=== PATIENT | male | born 1995 | race Hispanic/Latino ===

== ENCOUNTER 2021-05-06 17:24 | Emergency (ER) | payer SELFPAY ==
[2021-05-06 18:37] LABS: Absolute Lymphocytes (CBC) 1.4 K/uL (0.7-4.9); Lymphocytes % 18.9 % (15.3-44.8); MPV 8.9 fL (7.6-11.3)
[2021-05-06 18:41] LABS: Urine Blood Negative (Negative); Urine Glucose Negative (Negative); Urine Protein Trace (Negative); Urine Specific Gravity 1.025 (1.005-1.030)
[2021-05-06 18:53] LABS: Potassium 4.3 mmol/L (3.5-5.1)
[2021-05-06] MEDS ORDERED: NA CHLORIDE 0.9% 1,000 ML ONE (20:10)
[2021-05-06 20:34] LABS: SARS-COV-2 RT PCR NEGATIVE (NEGATIVE)
--- NOTE | 2021-05-06 20:48 | ER ---
Nurse's Notes [facility] Name: Vicente Fuchs Age: 26 yrs Sex: Male : 1995 Arrival Date: 05/06/2021 Time: 17:26 Bed 20 Private MD: Diagnosis: Volume depletion, unspecified Presentation: 05/06 17:44 Chief complaint: Patient states: "I just feel very weak and tired. I think I'm ab2 dehydrated. My work sent me here to be checked out." Pt c/o nausea. Denies v/d. Denies chest pain, SOB and cough. Coronavirus screen: Vaccine status: Patient reports receiving the 2nd dose of the covid vaccine. Client denies travel out of the [place] in the last 14 days. At this time, the client does not indicate any symptoms associated with coronavirus-19. Ebola Screen: Patient negative for fever greater than or equal to 101.5 degrees Fahrenheit, and additional compatible Ebola Virus Disease symptoms Patient denies exposure to infectious person. Patient denies travel to an Ebola-affected area in the 21 days before illness onset. No symptoms or risks identified at this time. Initial Sepsis Screen: Does the patient meet any 2 criteria? No. Patient's initial sepsis screen is negative. Does the patient have a suspected source of infection? No. Patient's initial sepsis screen is negative. Risk Assessment: Do you want to hurt yourself or someone else? Patient reports no desire to harm self or others. Onset of symptoms is unknown. 17:44 Method Of Arrival: Ambulatory ab2 17:48 Acuity: NINFA 4 ab2 Triage Assessment: 17:47 General: Appears in no apparent distress. comfortable, Behavior is calm, cooperative, ab2 appropriate for age. Pain: Denies pain. Cardiovascular: Denies chest pain, shortness of breath. Respiratory: Denies shortness of breath. GI: Reports nausea, Patient currently denies diarrhea, vomiting. Historical: - Allergies: 17:47 Levofloxacin; ab2 - PMHx: 17:47 None; ab2 - PSHx: 17:47 None; ab2 - Immunization history:: Adult Immunizations up to date. - Social history:: Smoking status: Reported history of juuling and/or vaping. Screenin:04 Abuse screen: Denies threats or abuse. Denies injuries from another. Nutritional sm5 screening: No deficits noted. Tuberculosis screening: No symptoms or risk factors identified. Fall Risk None identified. Assessment: 21:04 General: Appears in no apparent distress. Behavior is cooperative. Neuro: No deficits sm5 noted. Level of Consciousness is awake, alert, obeys commands, Oriented to person, place, time, situation. Cardiovascular: No deficits noted. Capillary refill < 3 seconds Patient's skin is warm and dry. Respiratory: No deficits noted. Airway is patent Trachea midline Respiratory effort is even, unlabored. Vital Signs: 17:44 BP 130 / 95; Pulse 87; Resp 17; Temp 98.7(TE); Pulse Ox 100% on R/A; Weight 83.01 kg; ab2 Height 5 ft. 7 in. (170.18 cm); Pain 0/10; 18:41 BP 118 / 79 LA Standing (man/reg); mb7 18:41 BP 120 / 76 LA Sitting (man/reg); mb7 21:05 BP 104 / 88; Pulse 75; Resp 16; Pulse Ox 99% on R/A; sm5 17:44 Body Mass Index 28.66 (83.01 kg, 170.18 cm) ab2 ED Course: 17:26 Patient arrived in ED. rg4 17:47 Triage completed. ab2 17:48 Arm band placed on right wrist. ab2 17:50 Tj Suarez, KERVIN is Primary Nurse. jd3 17:52 Noelle Valdivia FNP-C is [facility]. kb 17:52 Mehul Carmen MD is Attending Physician. kb 21:04 IV discontinued, intact, bleeding controlled, No redness/swelling at site. Pressure sm5 dressing applied. 21:06 Patient has correct armband on for positive identification. Bed in low position. Call sm5 light in reach. Side rails up X2. 21:06 No provider procedures requiring assistance completed. sm5 Administered Medications: 20:10 Drug: NS 0.9% 1000 ml Route: IV; Rate: 1000 ml; Site: right antecubital; sm5 21:06 Follow up: IV Status: Completed infusion; IV Intake: 1000ml sm5 Intake: 21:06 IV: 1000ml; Total: 1000ml. sm5 Outcome: 20:48 Discharge ordered by . kb 21:06 Discharged to home ambulatory, with family. 5 21:06 Condition: stable 21:06 Discharge instructions given to patient, Instructed on discharge instructions, follow up and referral plans. Demonstrated understanding of instructions, follow-up care. 21:06 Patient left the ED. 5 Signatures: Noelle Valdivia, BARKER PEELER-C BARKER PEELER-CkLanette Farias rg4 Tj Suarez RN RN jd3 Leana Nieto 7 Jaz Padilla RN RN sm5 Laz Ward ab2 Corrections: (The following items were deleted from the chart) 17:44 Chief complaint: Patient states: "I just feel very weak and tired. I think I'm ab2 dehydrated. My work sent me here to be checked out." ab2 17:44 Acuity: NINFA 3 ab2 ab2
--- NOTE | 2021-05-06 20:48 | EDPHYS ---
Physician Documentation [facility] Name: Vicente Fuchs Age: 26 yrs Sex: Male : 1995 Arrival Date: 05/06/2021 Time: 17:26 Bed 20 Private MD: ED Physician Mehul Carmen HPI: 05/06 18:23 This 26 yrs old Male presents to ER via Ambulatory with complaints of kb Weakness, Body Aches. 18:23 The patient presents with generalized weakness. Onset: The symptoms/episode kb began/occurred today. Context: occurred at home, occurred while the patient was getting up from bed, just prior to the episode the patient experienced no apparent symptoms. Modifying factors: The symptoms are alleviated by nothing, the symptoms are aggravated by nothing. Associated signs and symptoms: Pertinent positives: nausea, bodyaches. Severity of symptoms: At their worst the symptoms were moderate in the emergency department the symptoms are unchanged. Patient's baseline: Neuro: alert and fully oriented, Motor: no deficits, Ambulation: walks without assistance, Speech: normal. The patient has not experienced similar symptoms in the past. The patient has not recently seen a physician. Pt reports he woke up at 1400 and had some weakness, bodyaches and nausea. States "I feel like I'm dehydrated. I don't drink a lot of water.". Historical: - Allergies: 17:47 Levofloxacin; ab2 - PMHx: 17:47 None; ab2 - PSHx: 17:47 None; ab2 - Immunization history:: Adult Immunizations up to date. - Social history:: Smoking status: Reported history of juuling and/or vaping. ROS: 18:21 Respiratory: Negative for shortness of breath, cough, wheezing, and pleuritic chest kb pain. 18:21 Constitutional: Positive for body aches, fatigue. 18:21 Abdomen/GI: Positive for nausea, Negative for abdominal pain, vomiting, diarrhea. 18:21 Neuro: Positive for weakness. 18:21 All other systems are negative. Exam: 18:21 Constitutional: This is a well developed, well nourished patient who is awake, alert, kb and in no acute distress. Head/Face: Normocephalic, atraumatic. ENT: Moist Mucous membranes Cardiovascular: Regular rate and rhythm with a normal S1 and S2. No gallops, murmurs, or rubs. No pulse deficits. Respiratory: Respirations even and unlabored. No increased work of breathing. Talking in full sentences Abdomen/GI: Soft, non-tender. No distention Skin: Warm, dry with normal turgor. Normal color. MS/ Extremity: Pulses equal, no cyanosis. Neurovascular intact. Full, normal range of motion. Neuro: Awake and alert, GCS 15, oriented to person, place, time, and situation. Moves all extremities. Normal gait. Psych: Awake, alert, with orientation to person, place and time. Behavior, mood, and affect are within normal limits. Vital Signs: 17:44 BP 130 / 95; Pulse 87; Resp 17; Temp 98.7(TE); Pulse Ox 100% on R/A; Weight 83.01 kg; ab2 Height 5 ft. 7 in. (170.18 cm); Pain 0/10; 18:41 BP 118 / 79 LA Standing (man/reg); mb7 18:41 BP 120 / 76 LA Sitting (man/reg); mb7 21:05 BP 104 / 88; Pulse 75; Resp 16; Pulse Ox 99% on R/A; sm5 17:44 Body Mass Index 28.66 (83.01 kg, 170.18 cm) ab2 MDM: 17:53 Patient medically screened. kb 18:19 Data reviewed: vital signs, nurses notes. Data interpreted: Pulse oximetry: on room air kb is 100 %. Interpretation: normal. 20:46 Counseling: I had a detailed discussion with the patient and/or guardian regarding: the kb historical points, exam findings, and any diagnostic results supporting the discharge/admit diagnosis, lab results, the need for outpatient follow up, a family practitioner, to return to the emergency department if symptoms worsen or persist or if there are any questions or concerns that arise at home. 05/06 18:11 Order name: CBC with Diff kb 05/06 18:11 Order name: Basic Metabolic Panel; Complete Time: 18:54 kb 05/06 18:11 Order name: IV Start; Complete Time: 18:25 kb 05/06 18:11 Order name: COVID-19/FLU A+B (Document "Date of Onset" if Symptomatic); Complete Time: kb 20:40 05/06 18:41 Order name: Urine Dipstick-Ancillary; Complete Time: 18:45 EDMS 05/06 18:11 Order name: Urine Dipstick-Ancillary (obtain specimen); Complete Time: 18:42 kb 05/06 18:11 Order name: Orthostatics; Complete Time: 18:42 kb Administered Medications: 20:10 Drug: NS 0.9% 1000 ml Route: IV; Rate: 1000 ml; Site: right antecubital; sm5 21:06 Follow up: IV Status: Completed infusion; IV Intake: 1000ml 5 Disposition Summary: 05/06/21 20:48 Discharge Ordered Location: Home kb Condition: Stable kb Diagnosis - Volume depletion, unspecified kb Followup: kb - With: Emergency Department - When: As needed - Reason: Worsening of condition Followup: kb - With: Private Physician - When: 2 - 3 days - Reason: Recheck today's complaints, Continuance of care, Re-evaluation by your physician Discharge Instructions: - Discharge Summary Sheet kb - Dehydration, Adult, [id number] kb Forms: - Medication Reconciliation Form kb - Thank You Letter kb - Antibiotic Education kb - Work release form kb - Prescription Opioid Use kb Addendum: 05/10/2021 07:11 Co-signature as Attending Physician, Mehul Carmen MD I agree with the assessment and c alm plan of care. Signatures: Dispatcher [employer] Noelle Hernández, SCREEN EXAMINER-C SCREEN EXAMINER-Mehul Zendejas MD MD cha Mazur, Sarah, RN RN sm5 Laz Ward
[2021-05-06 21:38] VITALS: TEMP 98.7
[2021-05-06 21:40] VITALS: BP 104/88; O2SAT 99
== END 2021-05-06 21:06 | disposition home or self-care (01) ==
LOC: ER 17:24
DX: E86.9 Volume depletion, unspecified (principal); Z20.822 Contact with and (suspected) exposure to COVID-19; Z88.1 Allergy status to other antibiotic agents
CPT/HCPCS: 0240U; 36415; 80048; 81003; 85025; 96360; 99283; J7030

== ENCOUNTER 2021-06-20 08:58 | Emergency (ER) | payer SELFPAY ==
--- NOTE | 2021-06-20 10:51 | RAD REPORT ---
EXAM DESCRIPTION: CT - Head Brain Wo Cont - 06/20/2021 10:22 am CLINICAL HISTORY: Hydrocephalus, shunted, follow up COMPARISON: No comparisons TECHNIQUE: Axial 5 mm thick images of the head were obtained without IV contrast. All CT scans are performed using dose optimization technique as appropriate and may include automated exposure control or mA/KV adjustment according to patient size. FINDINGS: No intracranial hemorrhage is present. Ventricles are fully decompressed. Physiologic calc ifications are present. Shunt tube is present with the tip in the midline. No acute infarction change s are present. No abnormal extra-axial fluid collections. Patient has significant underlying developm ental abnormalities evident. Brain parenchymal detail is somewhat limited. Isodense mass lesion asses sment cannot be accurately made on this study. Mastoid air cells and visualized portions of the paranasal sinuses are clear. No acute bony findings. Foramen magnum is enlarged. IMPRESSION: Ventricles are fully decompressed. Shunt tube is present in the midline. No intracranial hemorrhage is present. No cerebral edema suspected. Patient has gross developmental abnormalities evident in the brain parenchyma. These changes are all believed be baseline. Assessment of any interval change or isodense mass development is limited.
--- NOTE | 2021-06-20 10:58 | RAD REPORT ---
EXAM DESCRIPTION: RAD - Shuntogram - 06/20/2021 10:36 am CLINICAL HISTORY: headache COMPARISON: No comparisons TECHNIQUE: Multiple images of the head, neck, chest and abdomen were obtained has a shunt series. FINDINGS: Right parietal shunt tube is in place. Tip is in the midline. No abnormal bend or kink of the tubing. Intraabdominal portion is curled in the upper abdomen superior to the transverse colon. C alcifications are present along the course of the shunt in the upper chest and lower neck as a normal variant. No acute or unexpected skull, neck, chest or abdomen finding. Patient has moderate volume of stool in the right-side colon. IMPRESSION: No abnormality of the shunt tubing identifiable.
--- NOTE | 2021-06-20 11:04 | ER ---
Nurse's Notes [facility] Name: Vicente Fuchs Age: 26 yrs Sex: Male : 1995 Arrival Date: 06/20/2021 Time: 09:02 Bed Waiting Private MD: Diagnosis: Headache Presentation: 06/20 09:48 Chief complaint: Patient states: Headache yesterday, denies MCKEE today, report's just jl7 want to make sure shunt is working. Coronavirus screen: At this time, the client does not indicate any symptoms associated with coronavirus-19. Ebola Screen: No symptoms or risks identified at this time. Initial Sepsis Screen: Does the patient meet any 2 criteria? No. Patient's initial sepsis screen is negative. Does the patient have a suspected source of infection? No. Patient's initial sepsis screen is negative. Risk Assessment: Do you want to hurt yourself or someone else? Patient reports no desire to harm self or others. Onset of symptoms was June 19, 2021. 09:48 Method Of Arrival: Ambulatory [facility] 09:48 Acuity: NINFA 3 [facility] Triage Assessment: 09:51 Headache History: The patient has had previous headaches and this one is similar to 7 previous episodes. General: Appears in no apparent distress. uncomfortable, Behavior is calm, cooperative, appropriate for age. Pain: Denies pain. Pain currently is 0 out of 10 on a pain scale. at worst was 8 out of 10 on a pain scale. Pain began suddenly, Also complains of no other associated symptoms. Neuro: Level of Consciousness is awake, alert, obeys commands, Oriented to person, place, time, situation. Cardiovascular: Patient's skin is warm and dry. Respiratory: Airway is patent Respiratory effort is even, unlabored, Respiratory pattern is regular, symmetrical. Derm: Skin is pink, warm \T\ dry. Historical: - Allergies: 09:51 Levofloxacin; jl7 - Home Meds: 09:51 None [Active]; jl7 - PMHx: 09:51 hydrocephalus; shunt; jl7 - PSHx: 09:51 shunt placement; jl7 - Immunization history:: Client reports receiving the 2nd dose of the Covid vaccine. - Social history:: Smoking status: Reported history of juuling and/or vaping. Vital Signs: 09:48 BP 122 / 68; Pulse 77; Resp 17; Temp 98.2; Pulse Ox 100% on R/A; Weight 77.11 kg; jl7 Height 5 ft. 7 in. (170.18 cm); Pain 0/10; 09:48 Body Mass Index 26.63 (77.11 kg, 170.18 cm) jl7 ED Course: 09:02 Patient arrived in ED. as 09:16 Benito Lanza PA is [facility]CP[facility] 09:16 Dino Calixto MD is Attending Physician. jmm 09:51 Triage completed. jl7 09:51 Arm band placed on right wrist. jl7 10:24 CT Head Brain wo Cont In Process Unspecified. EDMS 10:38 Shuntogram XRAY In Process Unspecified. EDMS 11:03 Ruben Hernández MD is Referral Physician. jmm 12:23 Michelle Escobedo, RN is Primary Nurse. iw Administered Medications: No medications were administered Outcome: 11:04 Discharge ordered by . [facility] 12:23 Patient left the ED. iw Signatures: Dispatcher [employer] EDMS Benito Lanza PA PA jmm Martinez, Amelia as Michelle Escobedo, RN RN iw Zenaida Wise RN RN jl7
--- NOTE | 2021-06-20 11:04 | EDPHYS ---
Physician Documentation [facility] Name: Vicente Fuchs Age: 26 yrs Sex: Male : 1995 Arrival Date: 06/20/2021 Time: 09:02 Bed Waiting Private MD: ED Physician Dino Calixto HPI: 06/20 09:49 This 26 yrs old Male presents to ER via Unassigned with complaints of Headache.jmm 09:49 The patient complains of pain to the forehead, right ear, right mu-ism and right jaw. jmm Onset: The symptoms/episode began/occurred gradually, 1 day(s) ago. Associated signs and symptoms: Pertinent negatives: fever. The patient has not experienced similar symptoms in the past. This is a 26 year old male with a history of hydrocephalus that presents to the ED with complaints of worsening right sided headache. Last shunt was placed 17 years ago. . Historical: - Allergies: 09:51 Levofloxacin; jl7 - Home Meds: 09:51 None [Active]; jl7 - PMHx: 09:51 hydrocephalus; shunt; jl7 - PSHx: 09:51 shunt placement; jl7 - Immunization history:: Client reports receiving the 2nd dose of the Covid vaccine. - Social history:: Smoking status: Reported history of juuling and/or vaping. ROS: 09:49 Constitutional: Negative for fever, chills, and weight loss, Cardiovascular: Negative jmm for chest pain, palpitations, and edema, Respiratory: Negative for shortness of breath, cough, wheezing, and pleuritic chest pain. 09:49 Neuro: Positive for headache. 09:49 All other systems are negative. Exam: 09:49 Constitutional: This is a well developed, well nourished patient who is awake, alert, jmm and in no acute distress. Head/Face: atraumatic. Eyes: EOMI, no conjunctival erythema appreciated ENT: Moist Mucus Membranes Neck: Trachea midline, Supple Chest/axilla: Normal chest wall appearance and motion. Cardiovascular: Regular rate and rhythm. No edema appreciated Respiratory: Normal respirations, no respiratory distress appreciated Abdomen/GI: Non distended, soft Back: Normal ROM Skin: General appearance color normal MS/ Extremity: Moves all extremities, no obvious deformities appreciated, no edema noted to the lower extremities Neuro: Awake and alert Psych: Behavior is normal, Mood is normal, Patient is cooperative and pleasant Vital Signs: 09:48 BP 122 / 68; Pulse 77; Resp 17; Temp 98.2; Pulse Ox 100% on R/A; Weight 77.11 kg; jl7 Height 5 ft. 7 in. (170.18 cm); Pain 0/10; 09:48 Body Mass Index 26.63 (77.11 kg, 170.18 cm) jl7 MDM: 09:45 Patient medically screened. [facility] 11:03 Data reviewed: vital signs, nurses notes. Counseling: I had a detailed discussion with [facility] the patient and/or guardian regarding: the historical points, exam findings, and any diagnostic results supporting the discharge/admit diagnosis, radiology results, the need for outpatient follow up, to return to the emergency department if symptoms worsen or persist or if there are any questions or concerns that arise at home. ED course: Imaging studies negative. Patient advised to follow up with neurology.neuro surgery for reevaluation. Patient understood and agrees with the plan of care. . 06/20 09:46 Order name: CT Head Brain wo Cont; Complete Time: 10:57 [facility] 06/20 09:46 Order name: Shuntogram XRAY; Complete Time: 11:02 [facility] Administered Medications: No medications were administered Disposition: 13:54 Co-signature as Attending Physician, Dino Calixto MD I agree with the assessment and kdr plan of care. Disposition Summary: 06/20/21 11:04 Discharge Ordered Location: Home [facility] Condition: Stable [facility] Diagnosis - Headache [facility] Followup: [facility] - With: Ruben Hernández MD - When: 2 - 3 days - Reason: Recheck today's complaints, Continuance of care, Re-evaluation by your physician Discharge Instructions: - Discharge Summary Sheet [facility] - Brain Shunt Home Guide [facility] Forms: - Medication Reconciliation Form [facility] - Thank You Letter [facility] - Antibiotic Education [facility] - Prescription Opioid Use [facility] Signatures: Dispatcher [employer] EDDino Bahena MD MD kdr Mickail, Joel, PA PA jmm Leal, Jahala RN RN jl7
[2021-06-20 12:27] VITALS: BP 122/68; TEMP 98.2; O2SAT 100
== END 2021-06-20 12:23 | disposition home or self-care (01) ==
LOC: ER 08:58
DX: R51.9 Headache, unspecified (principal); Z98.2 Presence of cerebrospinal fluid drainage device; Z88.3 Allergy status to other anti-infective agents
CPT/HCPCS: 49427; 70450; 75809; 99282

== ENCOUNTER 2021-10-10 08:39 | Emergency (ER) | payer BC, SELFPAY ==
--- NOTE | 2021-10-10 10:49 | ER ---
Nurse's Notes [facility] Name: Vicente Fuchs Age: 26 yrs Sex: Male : 1995 Arrival Date: 10/10/2021 Time: 08:41 Bed 12 Private MD: Diagnosis: Viral illness;myalgias;Cough Presentation: 10/10 09:10 Chief complaint: Patient states: Pt called 911 for COVID/FLU like symptoms. Per EMS, 5 patient has a paper of symptoms written down by his that he presented to them. Coronavirus screen: Vaccine status: Patient reports receiving the 2nd dose of the covid vaccine. Client denies travel out of the [place] in the last 14 days. Ebola Screen: Patient negative for fever greater than or equal to 101.5 degrees Fahrenheit, and additional compatible Ebola Virus Disease symptoms Patient denies exposure to infectious person. Patient denies travel to an Ebola-affected area in the 21 days before illness onset. Initial Sepsis Screen: Does the patient meet any 2 criteria? No. Patient's initial sepsis screen is negative. Does the patient have a suspected source of infection? No. Patient's initial sepsis screen is negative. Risk Assessment: Do you want to hurt yourself or someone else? Patient reports no desire to harm self or others. Onset of symptoms was October 08, 2021. 09:10 Method Of Arrival: [place] [id number] 09:10 Acuity: NINFA 4 5 Triage Assessment: 09:19 General: Appears in no apparent distress. slender, Behavior is calm, cooperative, [facility] appropriate for age. Pain: Denies pain. Historical: - Allergies: 09:19 Levofloxacin; [facility] - PMHx: 09:19 Hydrocephalus; Shunt; [facility] - PSHx: 09:19 shunt placement; [facility] - Immunization history:: Adult Immunizations up to date. - Social history:: Smoking status: Patient reports the use of cigarette tobacco products, smokes one-half pack cigarettes per day, Reported history of juuling and/or vaping. Screenin:20 Abuse screen: Denies threats or abuse. Denies injuries from another. Nutritional [facility] screening: No deficits noted. Tuberculosis screening: No symptoms or risk factors identified. Fall Risk None identified. Vital Signs: 09:10 BP 122 / 78; Pulse 84; Resp 18; Temp 99.4(T); Pulse Ox 98% on R/A; Weight 80.74 kg; 5 Height 5 ft. 7 in. (170.18 cm); Pain 0/10; 09:10 Body Mass Index 27.88 (80.74 kg, 170.18 cm) 5 ED Course: 08:41 Patient arrived in ED. bd 08:42 Aldo Gamino DO is Attending Physician. ms3 08:46 Evette Hurtado, RN is Primary Nurse. 5 09:10 COVID-19 (Coronavirus) Document "Date of Onset" if Symptomatic Sent. jh5 09:10 Flu Sent. 5 09:19 Triage completed. 5 09:19 Arm band placed on right wrist. jh5 09:20 No provider procedures requiring assistance completed. 5 09:20 Patient has correct armband on for positive identification. 5 09:45 SARS-COV-2 RT PCR (Document "Date of Onset" if Symptomatic) Sent. [facility] 10:48 Connor Cosme DO is Referral Physician. ms3 11:05 Patient did not have IV access during this emergency room visit. iw Administered Medications: 11:03 Drug: Ibuprofen 600 mg Route: PO; iw Medication: 09:20 VIS not applicable for this client. [facility] Outcome: 10:49 Discharge ordered by . ms3 11:05 Discharged to home ambulatory. iw 11:05 Condition: good 11:05 Discharge instructions given to patient, Instructed on discharge instructions, follow up and referral plans. medication usage, Demonstrated understanding of instructions, follow-up care, medications, Prescriptions given X 1. 11:05 Patient left the ED. iw Signatures: Tuyet Beatty Irene RN RN Aldo Gamino DO DO ms3 Evette Hurtado, KERVIN RN 5
--- NOTE | 2021-10-10 10:50 | EDPHYS ---
Physician Documentation [facility] Name: Vicente Fuchs Age: 26 yrs Sex: Male : 1995 Arrival Date: 10/10/2021 Time: 08:41 Bed 12 Private MD: ED Physician Aldo Gamino HPI: 10/10 08:49 This 26 yrs old Male presents to ER via Unassigned with complaints of ms3 bodyaches, dry cough x 2 days. 08:49 The patient or guardian reports cough, with no sputum. Onset: The symptoms/episode ms3 began/occurred 2 day(s) ago. Severity of symptoms: At their worst the symptoms were moderate, in the emergency department the symptoms are unchanged, a " 8" out of "10". Modifying factors: The symptoms are alleviated by nothing, the symptoms are aggravated by nothing. Associated signs and symptoms: Pertinent negatives: chest pain, vomiting. 26-year-old male with past medical history of hydrocephalus status post shunt placement presents for COVID-like symptoms that have been ongoing for 2 days. Patient denies sick contacts. Patient states his discomfort is an 8/10 and described as aching. Patient denies alleviating or inciting factors. Patient states he is taken Robitussin without relief. . Historical: - Allergies: 09:19 Levofloxacin; jh5 - PMHx: 09:19 Hydrocephalus; Shunt; jh5 - PSHx: 09:19 shunt placement; jh5 - Immunization history:: Adult Immunizations up to date. - Social history:: Smoking status: Patient reports the use of cigarette tobacco products, smokes one-half pack cigarettes per day, Reported history of juuling and/or vaping. ROS: 08:49 Neck: Negative for injury, pain, and swelling, Cardiovascular: Negative for chest pain, ms3 and palpitations. 08:49 Skin: Negative for injury, rash, and discoloration, Neuro: Negative for headache, weakness, numbness, tingling. 08:49 Constitutional: Positive for body aches, chills. 08:49 ENT: Positive for nasal discharge, rhinorrhea. 08:49 Respiratory: Positive for cough. 08:49 All other systems are negative. Exam: 08:49 Constitutional: This is a well developed, well nourished patient who is awake, alert, ms3 and in no acute distress. Head/Face: Normocephalic, atraumatic. Neck: Trachea midline, no cervical lymphadenopathy. Supple, full range of motion without nuchal rigidity, or vertebral point tenderness. No Meningismus. Chest/axilla: Normal chest wall appearance and motion. Nontender with no deformity. Cardiovascular: Regular rate and rhythm with a normal S1 and S2. No gallops, murmurs, or rubs. Normal PMI, no JVD. No pulse deficits. Respiratory: Lungs have equal breath sounds bilaterally, clear to auscultation and percussion. No rales, rhonchi or wheezes noted. No increased work of breathing, no retractions or nasal flaring. Abdomen/GI: Soft, non-tender, with normal bowel sounds. No distension or tympany. No guarding or rebound. No evidence of tenderness throughout. Skin: Warm, dry with normal turgor. Normal color with no rashes, no lesions, and no evidence of cellulitis. MS/ Extremity: Pulses equal, no cyanosis. Neurovascular intact. Full, normal range of motion. Vital Signs: 09:10 BP 122 / 78; Pulse 84; Resp 18; Temp 99.4(T); Pulse Ox 98% on R/A; Weight 80.74 kg; 5 Height 5 ft. 7 in. (170.18 cm); Pain 0/10; 09:10 Body Mass Index 27.88 (80.74 kg, 170.18 cm) [facility] MDM: 08:42 Patient medically screened. ms3 08:49 Differential Diagnosis: Bronchitis Influenza Upper Respiratory Infection. ms3 10:54 Data reviewed: vital signs, nurses notes, lab test result(s), and as a result, I will ms3 discharge patient. Data interpreted: Pulse oximetry: on room air is 98 %. Interpretation: normal. Counseling: I had a detailed discussion with the patient and/or guardian regarding: the historical points, exam findings, and any diagnostic results supporting the discharge/admit diagnosis, lab results, the need for outpatient follow up, to return to the emergency department if symptoms worsen or persist or if there are any questions or concerns that arise at home. Special discussion: I discussed with the patient/guardian in detail that at this point there is no indication for admission to the hospital. It is understood, however, that if the symptoms persist or worsen the patient needs to return immediately for re-evaluation. ED course: Patient alert and oriented x4, ambulatory Emergency Department, in no apparent distress, nontoxic-appearing, speaking full sentences. Discussed with patient need to follow-up with his primary care physician in 2 to 3 days. Patient understands and agrees with plan. Return precautions discussed include worsening symptoms, or any other concerns.. 10/10 08:43 Order name: Flu; Complete Time: 10:48 ms3 10/10 08:56 Order name: SARS-COV-2 RT PCR (Document "Date of Onset" if Symptomatic); Complete Time: kj1 10:48 Administered Medications: 11:03 Drug: Ibuprofen 600 mg Route: PO; iw Disposition Summary: 10/10/21 10:49 Discharge Ordered Location: Home ms3 Condition: Stable ms3 Diagnosis - Viral illness ms3 - myalgias ms3 - Cough ms3 Followup: ms3 - With: Connor Cosme DO - When: 2 - 3 days - Reason: Recheck today's complaints Discharge Instructions: - Discharge Summary Sheet ms3 - Cough, Adult ms3 Forms: - Medication Reconciliation Form ms3 - Thank You Letter ms3 - Work release form iw - Antibiotic Education ms3 - Prescription Opioid Use ms3 Prescriptions: - Tessalon Perles 100 mg Oral Capsule - take 1 capsule by ORAL route every 8 hours As needed; 15 capsule; Refills: 0, ms3 Product Selection Permitted Signatures: Dispatcher [employer] Michelle Jeffery, RN RN iw Aldo Gamino, DO ms3 Evette Hurtado, RN RN jh5
[2021-10-10] MEDS ORDERED: IBUPROFEN 200 MG TAB PO ONE (11:08)
[2021-10-10 11:19] VITALS: BP 122/78; TEMP 99.4; O2SAT 98
== END 2021-10-10 11:05 | disposition home or self-care (01) ==
LOC: ER 08:39
DX: B34.9 Viral infection, unspecified (principal); M79.10 Myalgia, unspecified site; F17.210 Nicotine dependence, cigarettes, uncomplicated; Z88.1 Allergy status to other antibiotic agents; Z20.822 Contact with and (suspected) exposure to COVID-19
CPT/HCPCS: 87804 ×2; U0003

== ENCOUNTER 2022-10-10 09:13 | Emergency (ER) | payer BC ==
--- OUTSIDE RECORDS SUMMARY | 2022-10-10 09:15 | XMS REPORT | Continuity of Care Document ---
:1995 Author Organization [facility] t Address [address] [place] [address] [place] [id number] Care Team Providers Name Role Phone PCP, PATIENT DOES NOT HAVE A Primary Care Physician Unavaila ble SHARONDA BROWN Attending Clinician Unavailable Jamil ULLOA, Sharonda Christopher Attending Clinician SHARONDA BROWN Admitting Clinician Unavailable Payers Payer Name Policy Type Policy Number Effective Date Expiration Date S [facility] - [id number] 2021 00:00:00 OUT OF STATE Problems Condition Condition Condition Status Onset Resolution Last Treating Co mments Source Name Details Category Date Date Treatment Clinician Date No known No known Disease Unive rs active active ity of problems problems [facility] Allergies, Adverse Reactions, Alerts Allergy Allergy Status Severity Reaction(s) Onset Inactive Treating Comm ents Source Name Type Date Date Clinician Levoflox Propensi Active Other - See Diaphore s Univers acin ty to comments 10-17 is ity of adverse 00:00: [place] reaction 00 Medical s to Branch drug LEVOFLOX DRUG Active Low Other-Cmnt Univ ers ACIN INGREDI 10-17 ity of 00:00: [place] [address] [place] [address] NO KNOWN Drug Active Univers ALLERGIE Class ity of S [facility] Social History Social Habit Start Date Stop Date Quantity Comments Source Exposure to 2021-10-07 2021-10-17 Not sure [facility] SARS-CoV-2 (event) 00:00:00 18:47:00 Medica l Branch Sex Assigned At [birth year] [facility] [place] 00:00:00 00:00:00 Medical Branch Smoking Status Start Date Stop Date Source Tobacco smoking consumption [facility] Medical unknown Branch Medications Ordered Filled Start Stop Current Ordering Indication Dosage Frequency Signature Comments Components Source Medication Medication Date Date Medication? Clinician (SIG) Name Name predniSONE No 40mg 40 mg, Univ ers (DELTASONE) 10-18 Oral, ity of tablet 40 01:30: 00:48 [place]CE, 1 [place] mg 00 :00 dose, On Medical Sat10/17/21 Branch at 2030, TEE azithromyci 2021- No 500mg 500 mg, U nivers n 10-18 Oral, ity of (ZITHROMAX) 01:30: 00:48 [place] 1 [place] 500 00 :00 dose, On Medic al mg Sat10/17/21 Branch at 2029, TEE
Re ason for Anti-Infec tive: Documented Infection< br>Documen zaid Infection Site: Respirator y
Durat ion of Therapy: 7 days azithromyci Yes [id number] 250mg Take 1 Univers n 250 mg 10-17 tablet by ity of tablet 00:00: mouth [place] 00 SEE-INSTRU Medical CTIONS. Branch Take 500 mg day 1, then 250 mg days 2 to 5. albuterol Yes [id number] 2{puff} Inhale 2 Univers 90 10-17 Puffs ity of mcg/actuati 00:00: every 4 [place] as on inhaler 00 (four) Medical hours as Branch needed for Wheezing or Shortness of Breath. predniSONE 2021- No [id number] 40mg Take 2 Univers 20 mg 10-17 tablets by ity of tablet 00:00: 04:59 mouth in [place] 00 :00 the Medical morning Branch for 7 days. codeine-gua 2021- No 10mL Take 10 mL Univers ifenesin 10-17 by mouth ity of 10-100 mg/5 00:00: 04:59 every 6 [place] mL oral 00 :00 (six) Medical solution hours as Branch needed for Cough for up to 7 days. Indication s: COUGH Vital Signs Vital Name Observation Time Observation Value Comments Source Systolic blood 2021-10-17 23:44:00 145 mm[Hg] Univer sity of pressure [facility] Diastolic blood 2021-10-17 23:44:00 77 mm[Hg] Unive rsity of pressure [facility] Heart rate 2021-10-17 23:44:00 91 /min [facility] Body temperature 2021-10-17 23:44:00 36.44 [facility] 2021-10-17 23:44:00 18 /min [facility] Body weight 2021-10-17 23:44:00 79.379 kg [facility] Oxygen saturation in 2021-10-17 23:44:00 100 /min [facility] Arterial blood by [facility] [place] [facility] Pulse oximetry Branch Procedures Procedure Date / Time Performed Performing Clinician Sourc e XR CHEST 2 VW 2021-10-18 00:21:[address] [facility] COVID-19 (ID NOW 2021-10-17 23:47:00 Sharonda Brown [facility] RAPID TESTING) [facility] Encounters Start End Encounter Admission Attending Care Care Encounter Source Date/Time Date/Time Type Type Clinicians Facility Department ID 2021-10-17 2021-10-17 Emergency X JAMIL ORBROOKS ERT [id number] Univers 18:47:00 19:53:00 SHARONDA [facility] 2021-10-17 2021-10-17 Emergency Jamil [facility] [id number] Univers 18:47:00 19:53:00 [id number] [id number] [facility] [id number] [facility] 084 Branch Results This patient has no known results.
--- NOTE | 2022-10-10 10:45 | EDPHYS ---
Physician Documentation [facility] Name: Vicente Fuchs Age: 27 yrs Sex: Male : 1995 Arrival Date: 10/10/2022 Time: 09:13 Bed 20 Private MD: ED Physician Aldo Gamino HPI: 10/10 09:53 This 27 yrs old Male presents to ER via Ambulatory with complaints of Covid ms3 Test. 09:54 27-year-old male with past medical history of hydrocephalus, seizures, shunt presents ms3 for cough and runny nose that began today. Patient states his was recently diagnosed with COVID yesterday. Patient denies fevers, chills. Patient states he does have a headache that he rates a 2/10. Patient denies alleviating or inciting factors. Historical: - Allergies: 09:23 Levofloxacin; hb - Home Meds: 09:24 None [Active]; hb - PMHx: 09:23 Hydrocephalus; Seizure; Shunt; hb - PSHx: 09:23 shunt placement; hb - Immunization history:: Adult Immunizations up to date, Client reports receiving the 2nd dose of the Covid vaccine, Flu vaccine is up to date. - Social history:: Smoking status: Patient reports the use of cigarette tobacco products, smokes one-half pack cigarettes per day. ROS: 09:54 Constitutional: Negative for fever, and chills. Cardiovascular: Negative for chest ms3 pain, and palpitations. Abdomen/GI: Negative for abdominal pain, nausea, vomiting, diarrhea, and constipation, MS/Extremity: Negative for injury and deformity, Skin: Negative for injury, rash, and discoloration. 09:54 Respiratory: Positive for cough. 09:54 All other systems are negative. Exam: 09:54 Constitutional: This is a well developed, well nourished patient who is awake, alert, ms3 and in no acute distress. Head/Face: Normocephalic, atraumatic. Chest/axilla: Normal chest wall appearance and motion. Nontender with no deformity. Cardiovascular: Regular rate and rhythm with a normal S1 and S2. No gallops, murmurs, or rubs. Normal PMI, no JVD. No pulse deficits. Respiratory: Lungs have equal breath sounds bilaterally, clear to auscultation and percussion. No rales, rhonchi or wheezes noted. No increased work of breathing, no retractions or nasal flaring. Abdomen/GI: Soft, non-tender, with normal bowel sounds. No distension or tympany. No guarding or rebound. No evidence of tenderness throughout. Skin: Warm, dry with normal turgor. Normal color with no rashes, no lesions, and no evidence of cellulitis. Vital Signs: 09:22 BP 134 / 91; Pulse 77; Resp 16; Temp 98.6(O); Pulse Ox 99% on R/A; Weight 83.01 kg; hb Height 5 ft. 7 in. ; Pain 2/10; 10:12 BP 128 / 90; Pulse 79; Resp 18; Pulse Ox 100% on R/A; ld1 09:22 Body Mass Index 28.66 (83.01 kg, 170.18 cm) hb 09:22 Pain Scale: Adult hb MDM: 09:31 Patient medically screened. ms3 09:54 Differential Diagnosis: Bronchitis Influenza Upper Respiratory Infection Other COVID. ms3 10:44 Data reviewed: vital signs, nurses notes, lab test result(s). Care significantly ms3 affected by the following chronic conditions: Hydrocephalus. Counseling: I had a detailed discussion with the patient and/or guardian regarding the historical points, exam findings, and any diagnostic results supporting the discharge/admit diagnosis, lab results, the need for outpatient follow up, to return to the emergency department if symptoms worsen or persist or if there are any questions or concerns that arise at home. Special discussion: I discussed with the patient/guardian in detail that at this point there is no indication for admission to the hospital. It is understood, however, that if the symptoms persist or worsen the patient needs to return immediately for re-evaluation. ED course: Discussed negative COVID results with patient. Patient to follow-up with primary care physician in 2 to 3 days. Patient understands and agrees with plan. All questions were answered. Return precautions discussed include worsening symptoms, or any other concerns. 10/10 09:31 Order name: COVID-19 SARS RT PCR; Complete Time: 10:31 ms3 Administered Medications: No medications were administered Disposition Summary: 10/10/22 10:44 Discharge Ordered Location: Home ms3 Condition: Stable ms3 Diagnosis - Acute upper respiratory infection, unspecified ms3 Followup: ms3 - With: Connor Cosme DO - When: 2 - 3 days - Reason: Recheck today's complaints Discharge Instructions: - Discharge Summary Sheet ms3 - Upper Respiratory Infection, Adult ms3 Forms: - Medication Reconciliation Form ms3 - Thank You Letter ms3 - Antibiotic Education ms3 - Prescription Opioid Use ms3 - Patient Portal Instructions ms3 - Leadership Thank You Letter ms3 Prescriptions: - Tessalon Perles 100 mg Oral Capsule - take 1 capsule by ORAL route every 8 hours As needed; 15 capsule; Refills: 0, ms3 Product Selection Permitted Signatures: Dispatcher [employer] Evie Dent RN RN Aldo Wooten DO DO ms3
--- NOTE | 2022-10-10 10:45 | ER ---
Nurse's Notes [facility] Name: Vicente Fuchs Age: 27 yrs Sex: Male : 1995 Arrival Date: 10/10/2022 Time: 09:13 Bed 20 Private MD: Diagnosis: Acute upper respiratory infection, unspecified Presentation: 10/10 09:22 Chief complaint: Headache 2/10 x 1 hour. tested COVID + yesterday. Coronavirus hb screen: Client presents with at least one sign or symptom that may indicate coronavirus-19. Standard/surgical mask placed on the client. Provider contacted for isolation considerations. Ebola Screen: No symptoms or risks identified at this time. Initial Sepsis Screen: Does the patient meet any 2 criteria? No. Patient's initial sepsis screen is negative. Does the patient have a suspected source of infection? No. Patient's initial sepsis screen is negative. Risk Assessment: Do you want to hurt yourself or someone else? Patient reports no desire to harm self or others. Onset of symptoms was October 10, 2022. 09:22 Method Of Arrival: Ambulatory hb 09:22 Acuity: NINFA 4 hb Historical: - Allergies: 09:23 Levofloxacin; hb - Home Meds: 09:24 None [Active]; hb - PMHx: 09:23 Hydrocephalus; Seizure; Shunt; hb - PSHx: 09:23 shunt placement; hb - Immunization history:: Adult Immunizations up to date, Client reports receiving the 2nd dose of the Covid vaccine, Flu vaccine is up to date. - Social history:: Smoking status: Patient reports the use of cigarette tobacco products, smokes one-half pack cigarettes per day. Screenin:12 [facility] ED Fall Risk Assessment (Adult) History of falling in the last 3 months, ld1 including since admission No falls in past 3 months (0 pts). Abuse screen: Denies threats or abuse. Denies injuries from another. Nutritional screening: No deficits noted. Tuberculosis screening: No symptoms or risk factors identified. Assessment: 10:12 General: Appears in no apparent distress. comfortable, Behavior is calm, cooperative, ld1 appropriate for age. Pain: Denies pain. Neuro: Level of Consciousness is awake, alert, obeys commands, Oriented to person, place, time, situation. Cardiovascular: Capillary refill < 3 seconds Patient's skin is warm and dry. Respiratory: Airway is patent Respiratory effort is even, unlabored. GI: Abdomen is flat, non-distended. : No signs and/or symptoms were reported regarding the genitourinary system. EENT: No signs and/or symptoms were reported regarding the EENT system. Derm: No signs and/or symptoms reported regarding the dermatologic system. Musculoskeletal: No signs and/or symptoms reported regarding the musculoskeletal system. Vital Signs: 09:22 BP 134 / 91; Pulse 77; Resp 16; Temp 98.6(O); Pulse Ox 99% on R/A; Weight 83.01 kg; hb Height 5 ft. 7 in. ; Pain 2/10; 10:12 BP 128 / 90; Pulse 79; Resp 18; Pulse Ox 100% on R/A; ld1 09:22 Body Mass Index 28.66 (83.01 kg, 170.18 cm) hb 09:22 Pain Scale: Adult hb ED Course: 09:17 Patient arrived in ED. mr 09:17 Aldo Gamino DO is Attending Physician. ms3 09:21 Arm band placed on Patient placed in an exam room, on a stretcher. ll1 09:23 Triage completed. hb 09:44 COVID-19 SARS RT PCR Sent. 10:12 Zenaida Gamino, KERVIN is Primary Nurse. ld1 10:12 Patient has correct armband on for positive identification. Placed in gown. Bed in low ld1 position. Call light in reach. Side rails up X2. Pulse ox on. NIBP on. Door closed. Noise minimized. Warm blanket given. 10:12 No provider procedures requiring assistance completed. Patient did not have IV access ld1 during this emergency room visit. 10:43 Connor Cosme DO is Referral Physician. ms3 Administered Medications: No medications were administered Medication: 10:12 VIS not applicable for this client. ld1 Outcome: 10:44 Discharge ordered by . ms3 10:49 Discharged to home ambulatory. ld1 10:49 Condition: stable 10:49 Discharge instructions given to patient, Instructed on discharge instructions, follow up and referral plans. medication usage, Demonstrated understanding of instructions, follow-up care, medications, Prescriptions given X 1. 10:49 Patient left the ED. ld1 Signatures: Mary Gómez RN RN kl Rivera, Mary mr Baxter Evie, RN RN chloe Gómez, Raymond, RN RN ll1 Hanny, DO ADRIEL Carlson ms3 Hanny, Zenaida, KERVIN RN ld1
[2022-10-10 10:54] VITALS: TEMP 98.6
[2022-10-10 10:55] VITALS: BP 128/90; O2SAT 100
== END 2022-10-10 10:49 | disposition home or self-care (01) ==
LOC: ER 09:13
DX: J06.9 Acute upper respiratory infection, unspecified (principal); F17.210 Nicotine dependence, cigarettes, uncomplicated; Z20.822 Contact with and (suspected) exposure to COVID-19; Z98.2 Presence of cerebrospinal fluid drainage device; Z88.3 Allergy status to other anti-infective agents
CPT/HCPCS: 87635

== ENCOUNTER 2023-01-05 14:02 | Emergency (ER) | payer BC, SELFPAY ==
--- OUTSIDE RECORDS SUMMARY | 2023-01-05 14:05 | XMS REPORT | Continuity of Care Document ---
:1995 Author Organization [facility] t Address [address] [place] [address] [place] [address] Care Team Providers Name Role Phone PCP, PATIENT DOES NOT HAVE A Primary Care Physician Unavaila ble SHARONDA BROWN Attending Clinician Unavailable Jamil ULLOA, Sharonda Christopher Attending Clinician SHARONDA BROWN Admitting Clinician Unavailable Payers Payer Name Policy Type Policy Number Effective Date Expiration Date S [facility] - [id number] 2021 00:00:00 OUT OF STATE Problems Condition Condition Condition Status Onset Resolution Last Treating Co mments Source Name Details Category Date Date Treatment Clinician Date No known No known Disease Unive rs active active ity of problems problems [facility] Allergies, Adverse Reactions, Alerts Allergy Allergy Status Severity Reaction(s) Onset Inactive Treating Comm ents Source Name Type Date Date Clinician Levoflox Propensi Active Other - See Diaphore s Univers acin ty to comments 10-17 is ity of adverse 00:00: [place] reaction 00 Medical s to Branch drug LEVOFLOX DRUG Active Low Other-Cmnt Univ ers ACIN INGREDI 10-17 ity of 00:00: [place] [address] [place] [address] NO KNOWN Drug Active Univers ALLERGIE Class ity of S [facility] Social History Social Habit Start Date Stop Date Quantity Comments Source Exposure to 2021-10-07 2021-10-17 Not sure [facility] SARS-CoV-2 (event) 00:00:00 18:47:00 Medica l Branch Sex Assigned At [birth year] [facility] [place] 00:00:00 00:00:00 Medical Branch Smoking Status Start Date Stop Date Source Tobacco smoking consumption [facility] Medical unknown Branch Medications Ordered Filled Start [...] ion of Therapy: 7 days azithromyci Yes [id number] 250mg Take 1 Univers n 250 mg 10-17 tablet by ity of tablet 00:00: mouth [place] 00 SEE-INSTRU Medical CTIONS. Branch Take 500 mg day 1, then 250 mg days 2 to 5. albuterol Yes [id number] 2{puff} Inhale 2 Univers 90 10-17 Puffs ity of mcg/actuati 00:00: every 4 [place] as on inhaler 00 (four) Medical hours as Branch needed for Wheezing or Shortness of Breath. predniSONE 2021- No [id number] 40mg Take 2 Univers 20 mg 10-17 tablets by ity of tablet 00:00: 04:59 mouth in [place] 00 :00 the Medical morning Branch for [...] 23:44:00 145 mm[Hg] Univer sity of pressure [facility] Diastolic blood 2021-10-17 23:44:00 77 mm[Hg] Unive rsity of pressure [facility] Heart rate 2021-10-17 23:44:00 91 /min [facility] Body temperature 2021-10-17 23:44:00 36.44 [facility]ley [facility] 2021-10-17 23:44:00 18 /min [facility] Body weight 2021-10-17 23:44:00 79.379 kg [facility] Oxygen saturation in 2021-10-17 23:44:00 100 /min [facility] Arterial blood by [facility] Pulse oximetry Branch Procedures Procedure Date / Time Performed Performing Clinician Sourc e XR CHEST 2 VW 2021-10-18 00:21:14 Sharonda Brown [facility] COVID-19 (ID NOW 2021-10-17 23:47:[address] [facility] RAPID TESTING) [facility] Encounters Start End Encounter Admission Attending Care Care Encounter Source Date/Time Date/Time Type Type Clinicians Facility Department ID 2021-10-17 2021-10-17 Emergency X JAMIL CABROOKS ERT [id number] Univers 18:47:00 19:53:00 SHARONDA [facility] 2021-10-17 2021-10-17 Emergency Jamil [facility] [id number] Univers 18:47:00 19:53:00 [id number] [id number] [facility] [id number] [facility] 084 Branch Results This patient has no known results.
--- NOTE | 2023-01-05 14:48 | RAD REPORT ---
EXAM DESCRIPTION: RAD - Chest Single View - 01/05/2023 2:42 pm CLINICAL HISTORY: CHEST PAIN Chest pain. COMPARISON: Chest Single View dated 11/23/2021 FINDINGS: Portable technique limits examination quality. The lungs are grossly clear. The heart is normal in size. No displaced fractures.Right-sided shunt tu jon. IMPRESSION: No acute intrathoracic process suspected.
[2023-01-05] MEDS ORDERED: NA CHLORIDE 0.9% 1,000 ML ONE (14:51)
[2023-01-05 15:15] LABS: Absolute Lymphocytes (CBC) 1.1 K/uL (0.7-4.9); Hematocrit 43.3 % (39.6-49.0); Lymphocytes % 16.2 % (15.3-44.8); MCV 91.6 fL (80-100); Platelets 210 thou/uL (152-406); RBC Red Blood Cell Count 4.73 M/uL (4.33-5.43)
[2023-01-05 15:30] LABS: Potassium 3.9 mEq/L (3.5-5.1); Troponin High Sensitivity 6.5 pg/mL (<58.9)
--- NOTE | 2023-01-05 16:22 | ER ---
Nurse's Notes [facility] Name: Vicente Fuchs Age: 27 yrs Sex: Male : 1995 Arrival Date: 01/05/2023 Time: 14:02 Bed 18 Private MD: Diagnosis: Dehydration;Chest pain, unspecified Presentation: 01/05 14:08 Chief complaint: Patient states: chest and back hurts since last night at work. ko1 Congestion, cough, no fever. Occasionally nauseated. Coronavirus screen: congestion, cough unrelated to allergies, fatigue. Ebola Screen: No symptoms or risks identified at this time. Initial Sepsis Screen: Does the patient meet any 2 criteria? No. Patient's initial sepsis screen is negative. Does the patient have a suspected source of infection? No. Patient's initial sepsis screen is negative. Risk Assessment: Do you want to hurt yourself or someone else? Patient reports no desire to harm self or others. Onset of symptoms was January 04, 2023. 14:08 Method Of Arrival: Ambulatory ko1 14:08 Acuity: NINFA 3 ko1 Triage Assessment: 14:11 General: Appears in no apparent distress. comfortable, Behavior is calm, cooperative, ko1 appropriate for age. Pain: Complains of pain in chest and back pain. Cardiovascular: Reports chest pain, shortness of breath. Historical: - Allergies: 14:11 Levofloxacin; ko1 - Home Meds: 14:11 None [Active]; ko1 - PMHx: 14:11 Hydrocephalus; Seizure; Shunt; ko1 - PSHx: 14:11 shunt placement; ko1 - Immunization history:: Adult Immunizations unknown. - Social history:: Smoking status: Patient reports the use of cigarette tobacco products. Assessment: 15:35 Reassessment: No changes from previously documented assessment. Patient and/or family ll1 updated on plan of care and expected duration. Pain level reassessed. Patient is alert, oriented x 3, equal unlabored respirations, skin warm/dry/pink. Vital Signs: 14:08 BP 138 / 96; Pulse 105; Resp 18; Temp 98.3; Pulse Ox 100% ; ko1 ED Course: 14:05 Patient arrived in ED. mg5 14:07 Shelbi Cosme MD is Attending Physician. sp3 14:11 Triage completed. ko1 14:11 Arm band placed on left wrist. Patient placed in an exam room, on a stretcher, on ko1 hall monitor, on pulse oximetry, Patient notified of wait time. 14:44 XRAY Chest (1 view) In Process Unspecified. EDMS 15:00 Inserted saline lock: 22 gauge in left antecubital area, using aseptic technique. Blood eh3 collected. 16:05 Avril Linn, RN is Primary Nurse. eh3 16:51 No provider procedures requiring assistance completed. IV discontinued, intact, eh3 bleeding controlled, No redness/swelling at site. Pressure dressing applied. Administered Medications: 15:00 Drug: NS 0.9% IV 1000 ml IV at 1 bolus Per protocol; 1000 mL bolus Route: IV; Rate: 1 eh3 bolus; Site: left antecubital; 16:05 Follow up: IV Status: Completed infusion; IV Intake: 1000ml eh3 Intake: 16:05 IV: 1000ml; Total: 1000ml. eh3 Outcome: 16:21 Discharge ordered by . sp3 16:51 Patient left the ED. eh3 Signatures: Dispatcher [employer] EDMS Raymond Gómez, RN RN ll1 Shelbi Cosme MD MD sp3 Avril Linn, KERVIN RN eh3 Xiomara Campbell RN RN ko1 Skylar Higgins 5
--- NOTE | 2023-01-05 16:22 | EDPHYS ---
Physician Documentation [facility] Name: Vicente Fuchs Age: 27 yrs Sex: Male : 1995 Arrival Date: 01/05/2023 Time: 14:02 Bed 18 Private MD: ED Physician Shelbi Cosme HPI: 01/05 14:22 This 27 yrs old Male presents to ER via Ambulatory with complaints of Chest sp3 Pain, Back Pain. 14:22 18-year-old male with history of hydrocephalus and seizure history with [employer] shunt now sp3 not actively being monitored in any way now presents to the ED with chief complaint chest pain and back pain that he states he gets when he gets dehydrated. 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 He denies any fever, URI symptoms, cough, congestion, shortness of breath, productive cough, hematemesis, hemoptysis, or any other signs or symptoms on ROS at this time. Patient currently has no chest pain but states he wants some IV fluids to get rehydrated.. Historical: - Allergies: 14:11 Levofloxacin; ko1 - Home Meds: 14:11 None [Active]; ko1 - PMHx: 14:11 Hydrocephalus; Seizure; Shunt; ko1 - PSHx: 14:11 shunt placement; ko1 - Immunization history:: Adult Immunizations unknown. - Social history:: Smoking status: Patient reports the use of cigarette tobacco products. ROS: 14:23 Constitutional: Negative for fever, chills, and weight loss, Eyes: Negative for injury, sp3 pain, redness, and discharge, ENT: Negative for injury, pain, and discharge, Neck: Negative for injury, pain, and swelling, Respiratory: Negative for shortness of breath, cough, wheezing, and pleuritic chest pain, : Negative for injury, bleeding, discharge, and swelling, MS/Extremity: Negative for injury and deformity, Skin: Negative for injury, rash, and discoloration, Neuro: Negative for headache, weakness, numbness, tingling, and seizure, Psych: Negative for depression, anxiety, suicide ideation, homicidal ideation, and hallucinations, Allergy/Immunology: Negative for hives, rash, and allergies, Endocrine: Negative for neck swelling, polydipsia, polyuria, polyphagia, and marked weight changes, Hematologic/Lymphatic: Negative for swollen nodes, abnormal bleeding, and unusual bruising, 14:23 All other systems are negative, Exam: 14:23 Constitutional: This is a well developed, well nourished patient who is awake, alert, sp3 and in no acute distress. Head/Face: Normocephalic, atraumatic. Eyes: Pupils equal round and reactive to light, extra-ocular motions intact. Lids and lashes normal. Conjunctiva and sclera are non-icteric and not injected. Cornea within normal limits. Periorbital areas with no swelling, redness, or edema. ENT: Nares patent. No nasal discharge, no septal abnormalities noted. External auditory canals are clear. Oropharynx with no redness, swelling, or masses, exudates, or evidence of obstruction, uvula midline. Mucous membranes moist. Neck: Trachea midline, no thyromegaly or masses palpated, and no cervical lymphadenopathy. Supple, full range of motion without nuchal rigidity, or vertebral point tenderness. No Meningismus. Chest/axilla: Normal chest wall appearance and motion. Nontender with no deformity. No lesions are appreciated. Respiratory: Lungs have equal breath sounds bilaterally, clear to auscultation and percussion. No rales, rhonchi or wheezes noted. No increased work of breathing, no retractions or nasal flaring. Abdomen/GI: Soft, non-tender, with normal bowel sounds. No distension or tympany. No guarding or rebound. No evidence of tenderness throughout. Back: No spinal tenderness. No costovertebral tenderness. Full range of motion. Skin: Warm, dry with normal turgor. Normal color with no rashes, no lesions, and no evidence of cellulitis. MS/ Extremity: Pulses equal, no cyanosis. Neurovascular intact. Full, normal range of motion. Neuro: Awake and alert, GCS 15, oriented to person, place, time, and situation. Cranial nerves II-XII grossly intact. Motor strength 5/5 in all extremities. Sensory grossly intact. Cerebellar exam normal. Normal gait. Psych: Awake, alert, with orientation to person, place and time. Behavior, mood, and affect are within normal limits. 14:50 ECG was reviewed by the Attending Physician. EKG demonstrates normal sinus rhythm at 87 sp3 bpm with normal intervals, normal QRS, normal axis, nonspecific diffuse ST/T changes without evidence of acute ischemia. Vital Signs: 14:08 BP 138 / 96; Pulse 105; Resp 18; Temp 98.3; Pulse Ox 100% ; ko1 MDM: 14:19 Patient medically screened. sp3 14:24 Data reviewed: vital signs, nurses notes, lab test result(s), EKG, radiologic studies. sp3 ED course: 19-year-old male with now resolved chest pain and subjective dehydration. Will obtain laboratory values, EKG, chest x-ray and administer IV fluids. I have a low suspicion for acute coronary syndrome, PE, TAD, sepsis, shock, any other critical process at this time. Process is likely dehydration or MSK in nature. Patient is resting comfortably. If work-up is negative patient feels better, we will safely discharge patient home.. 16:20 ED course: Laboratory values reviewed and demonstrate no significant abnormality. Mild sp3 prerenal azotemia noted for which patient has received IV fluids. Patient continues to have no chest pain and heart rate is now in the 80s. We will safely discharge patient home at this time.. 01/05 14:22 Order name: Basic Metabolic Panel; Complete Time: 15:34 sp3 01/05 14:22 Order name: CBC with Diff; Complete Time: 15:50 3 01/05 14:22 Order name: Troponin HS; Complete Time: 15:34 3 01/05 14:24 Order name: D-Dimer; Complete Time: 16:19 3 01/05 14:22 Order name: XRAY Chest (1 view); Complete Time: 14:49 3 01/05 14:22 Order name: EKG; Complete Time: 14:22 3 01/05 14:22 Order name: EKG - Nurse/Tech; Complete Time: 14:34 3 01/05 14:22 Order name: IV Saline Lock; Complete Time: 15:00 3 01/05 14:22 Order name: Labs collected and sent; Complete Time: 14:34 sp Administered Medications: 15:00 Drug: NS 0.9% IV 1000 ml IV at 1 bolus Per protocol; 1000 mL bolus Route: IV; Rate: 1 eh3 bolus; Site: left antecubital; 16:05 Follow up: IV Status: Completed infusion; IV Intake: 1000ml eh3 Disposition Summary: 01/05/23 16:21 Discharge Ordered Notes: Location: Home sp3 Condition: Stable sp3 Diagnosis - Dehydration sp3 - Chest pain, unspecified sp3 Followup: sp3 - With: Private Physician - When: Upon discharge from the Emergency Department - Reason: Continuance of care Discharge Instructions: - Discharge Summary Sheet sp3 - Dehydration, Adult sp3 Forms: - Medication Reconciliation Form sp3 - Thank You Letter sp3 - Antibiotic Education sp3 - Prescription Opioid Use sp3 - Patient Portal Instructions sp3 - Leadership Thank You Letter sp3 - Work release form 3 Signatures: Dispatcher [employer] EDMS Shelbi Cosme MD MD sp3 Avril Linn RN RN 3 Xiomara Campbell RN RN ko1 Corrections: (The following items were deleted from the chart) 14:24 14:23 Constitutional: This is a well developed, well nourished patient who is awake, sp3 alert, and in no acute distress. Head/Face: Normocephalic, atraumatic. Eyes: Pupils equal round and reactive to light, extra-ocular motions intact. Lids and lashes normal. Conjunctiva and sclera are non-icteric and not injected. Cornea within normal limits. Periorbital areas with no swelling, redness, or edema. ENT: Nares patent. No nasal discharge, no septal abnormalities noted. External auditory canals are clear. Oropharynx with no redness, swelling, or masses, exudates, or evidence of obstruction, uvula midline. Mucous membranes moist. Neck: Trachea midline, no thyromegaly or masses palpated, and no cervical lymphadenopathy. Supple, full range of motion without nuchal rigidity, or vertebral point tenderness. No Meningismus. Chest/axilla: Normal chest wall appearance and motion. Nontender with no deformity. No lesions are appreciated. sp3
[2023-01-05 17:13] VITALS: BP 138/96; TEMP 98.3; O2SAT 100
== END 2023-01-05 16:51 | disposition home or self-care (01) ==
LOC: ER 14:02
DX: R07.9 Chest pain, unspecified (principal); E86.0 Dehydration
CPT/HCPCS: 36415; 71045; 80048; 84484; 85025; 85379; 93005; 96360; 99284; J7030

== ENCOUNTER 2023-01-14 16:19 | Emergency (ER) | payer SELFPAY ==
--- OUTSIDE RECORDS SUMMARY | 2023-01-14 16:22 | XMS REPORT | Continuity of Care Document ---
:1995 Author Organization [facility] t Address [address] [place] [address] [place] [id number] Care Team Providers Name Role Phone PCP, PATIENT DOES NOT HAVE A Primary Care Physician Unavaila ble SHARONDA BROWN Attending Clinician Unavailable Jamil ULLOA, Sharonda Christopher Attending Clinician SHARONDA BROWN Admitting Clinician Unavailable Payers Payer Name Policy Type Policy Number Effective Date Expiration Date S [facility] - [id number] 2021 00:00:00 OUT OF STATE Problems Condition Condition Condition Status Onset Resolution Last Treating Co mments Source Name Details Category Date Date Treatment Clinician Date No known No known Disease Unive rs active active ity of problems problems [facility] Allergies, Adverse Reactions, Alerts Allergy Allergy Status Severity Reaction(s) Onset Inactive Treating Comm ents Source Name Type Date Date Clinician Levoflox Propensi Active Other - See Diaphore s Univers acin ty to comments 10-17 is ity of adverse 00:00: [place] reaction 00 Medical s to Branch drug LEVOFLOX DRUG Active Low Other-Cmnt Univ ers ACIN INGREDI 10-17 ity of 00:00: [place] [address] [place] [address] NO KNOWN Drug Active Univers ALLERGIE Class ity of S [facility] Social History Social Habit Start Date Stop Date Quantity Comments Source Exposure to 2021-10-07 2021-10-17 Not sure [facility] SARS-CoV-2 (event) 00:00:00 18:47:00 Medica l Branch Sex Assigned At [birth year] [facility] [place] 00:00:00 00:00:00 Medical Branch Smoking Status Start Date Stop Date Source Tobacco smoking consumption [facility] Medical unknown Branch Medications Ordered Filled [...] ion of Therapy: 7 days azithromyci Yes [id number] 250mg Take 1 Univers n 250 mg 10-17 tablet by ity of tablet 00:00: mouth [place] 00 SEE-INSTRU Medical CTIONS. Branch Take 500 mg day 1, then 250 mg days 2 to 5. albuterol Yes [id number] 2{puff} Inhale 2 Univers 90 10-17 Puffs ity of mcg/actuati 00:00: every 4 Soy as on inhaler 00 (four) Medical hours as Branch needed for Wheezing or Shortness of Breath. predniSONE 2021- No [id number] 40mg Take 2 Univers 20 mg 10-17 tablets by ity of tablet 00:00: 04:59 mouth in [place] 00 :00 the Medical morning Branch for [...] 23:44:00 145 mm[Hg] Univer sity of pressure [facility] Diastolic blood 2021-10-17 23:44:00 77 mm[Hg] Unive rsity of pressure [facility] Heart rate 2021-10-17 23:44:00 91 /min [facility] Body temperature 2021-10-17 23:44:00 36.44 Lesley [facility] [place] [facility] Respiratory rate 2021-10-17 23:44:00 18 /min [facility] Body weight 2021-10-17 23:44:00 79.379 kg [facility] Oxygen saturation in 2021-10-17 23:44:00 100 /min [facility] Arterial blood by [facility] Pulse oximetry Branch Procedures Procedure Date / Time Performed Performing Clinician Sourc e XR CHEST 2 VW 2021-10-18 00:21:[address] [facility] COVID-19 (ID NOW 2021-10-17 23:47:00 Sharonda Brown [facility] RAPID TESTING) [facility] Encounters Start End Encounter Admission Attending Care Care Encounter Source Date/Time Date/Time Type Type Clinicians Facility Department ID 2021-10-17 2021-10-17 Emergency X JAMIL CTBROOKS ERT [id number] Univers 18:47:00 19:53:00 SHARONDA [facility] [place] [facility] 2021-10-17 2021-10-17 Emergency Jamil [facility] [id number] Univers 18:47:00 19:53:00 [id number] [id number] [facility] 084 Branch Results This patient has no known results.
[2023-01-14] MEDS ORDERED: LIDOCAINE HCL JELLY 2% 6 ML SYRINGE TOP ONE (17:06)
--- NOTE | 2023-01-14 19:34 | ER ---
Nurse's Notes [facility] Name: Vicente Fcuhs Age: 27 yrs Sex: Male : 1995 Arrival Date: 01/14/2023 Time: 16:19 Bed IW1 Private MD: Diagnosis: Cutaneous abscess of other sites-right ear canal Presentation: 01/14 16:45 Chief complaint: Parent and/or Guardian states: he has an abscess on inside of right iw ear , since . Coronavirus screen: At this time, the client does not indicate any symptoms associated with coronavirus-19. Ebola Screen: Patient negative for fever greater than or equal to 101.5 degrees Fahrenheit, and additional compatible Ebola Virus Disease symptoms Patient denies exposure to infectious person. Patient denies travel to an Ebola-affected area in the 21 days before illness onset. No symptoms or risks identified at this time. Initial Sepsis Screen: Does the patient meet any 2 criteria? No. Patient's initial sepsis screen is negative. Does the patient have a suspected source of infection? No. Patient's initial sepsis screen is negative. Risk Assessment: Do you want to hurt yourself or someone else? Patient reports no desire to harm self or others. Onset of symptoms was January 11, 2023. 16:45 Method Of Arrival: Ambulatory 16:45 Acuity: NINFA 4 iw Historical: - Allergies: 16:46 Levofloxacin; iw - PMHx: 16:46 Hydrocephalus; Seizure; Shunt; iw - PSHx: 16:46 shunt placement; iw Screenin:05 [facility] ED Fall Risk Assessment (Adult) History of falling in the last 3 months, mb9 including since admission No falls in past 3 months (0 pts) Confusion or Disorientation No (0 pts) Intoxicated or Sedated No (0 pts) Impaired Gait No (0 pts) Mobility Assist Device Used No (0 pt) Altered Elimination No (0 pt) Score/Fall Risk Level 0 - 2 = Low Risk Oriented to surroundings, Maintained a safe environment, Educated pt \T\ family on fall prevention, incl call for assistance when getting out of bed. Abuse screen: Denies threats or abuse. Nutritional screening: No deficits noted. Tuberculosis screening: No symptoms or risk factors identified. Assessment: 20:04 General: Appears in no apparent distress. Behavior is calm, cooperative, appropriate mb9 for age. Pain: Complains of pain in right ear and right ear canal. Neuro: Jones Agitation-Sedation Scale (RASS): 0 - Alert and Calm Level of Consciousness is awake, alert, obeys commands, Oriented to person, place, time, situation, Appropriate for age. Cardiovascular: Patient's skin is warm and dry. Respiratory: Airway is patent Respiratory effort is even, unlabored, Respiratory pattern is regular, symmetrical. GI: No signs and/or symptoms were reported involving the gastrointestinal system. : No signs and/or symptoms were reported regarding the genitourinary system. EENT: No signs and/or symptoms were reported regarding the EENT system. Derm: Skin is pink, warm \T\ dry. Musculoskeletal: Range of motion: intact in all extremities. Vital Signs: 16:45 BP 132 / 96; Pulse 76; Resp 16; Temp 98.4; Pulse Ox 100% on R/A; iw 19:35 Weight 68.04 kg; mb9 ED Course: 16:23 Patient arrived in ED. mg5 16:30 Tabatha Heart FNP-C is PHCP. snw 16:30 Jamal Redd MD is Attending Physician. snw 16:46 Triage completed. iw 16:46 Arm band placed on. iw 19:32 Rosalina Matthews MD is Referral Physician. snw 20:05 Adult w/ patient. mb9 20:05 No provider procedures requiring assistance completed. Patient did not have IV access mb9 during this emergency room visit. Administered Medications: 16:55 Drug: Lidocaine Mucous Membrane Gel 2 % 1 application Mucous Membrane once Route: iw Mucous Membrane; 19:43 Drug: Maxitrol Ophthalmic Drops 1 drops Ophthalmic in right eye once; ear canal Route: mb9 Ophthalmic; Site: both eyes; 19:43 Drug: HYDROcodone-acetaminophen PO 5 mg-325 mg 1 tabs PO once Route: PO; mb9 20:06 Follow up: Response: No adverse reaction mb9 19:43 Drug: Trimethoprim-Sulfamethoxazole PO (160 mg-800 mg (DS) 1 tablet PO once Route: PO; mb9 20:06 Follow up: Response: No adverse reaction mb9 Outcome: 19:33 Discharge ordered by . snw 20:06 Patient left the ED. mb9 Signatures: Tabatha Heart FNP-C FNP-Csnw Michelle Escobedo, RN RN iw Emilia, Leana Starks, RN RN mb9 Skylar Higgins mg5
--- NOTE | 2023-01-14 19:34 | EDPHYS ---
Physician Documentation [facility] Name: Vicente Fuchs Age: 27 yrs Sex: Male : 1995 Arrival Date: 01/14/2023 Time: 16:19 Bed IW1 Private MD: ED Physician Jamal Redd HPI: 01/14 17:32 This 27 yrs old Male presents to ER via Ambulatory with complaints of Ear Pain snw - bump in ear. 17:32 The patient presents with pain, that is acute. The complaints affect the right ear snw canal. Onset: The symptoms/episode began/occurred suddenly. Associated signs and symptoms: Pertinent positives: ear pain. Historical: - Allergies: 16:46 Levofloxacin; iw - PMHx: 16:46 Hydrocephalus; Seizure; Shunt; iw - PSHx: 16:46 shunt placement; iw ROS: 17:32 Constitutional: Negative for fever, chills, and weight loss, Eyes: Negative for injury, snw pain, redness, and discharge, Neck: Negative for injury, pain, and swelling, Cardiovascular: Negative for chest pain, palpitations, and edema, Respiratory: Negative for shortness of breath, cough, wheezing, and pleuritic chest pain, Abdomen/GI: Negative for abdominal pain, nausea, vomiting, diarrhea, and constipation, Back: Negative for injury and pain, : Negative for injury, bleeding, discharge, and swelling, MS/Extremity: Negative for injury and deformity, Skin: Negative for injury, rash, and discoloration, Neuro: Negative for headache, weakness, numbness, tingling, and seizure, Psych: Negative for depression, anxiety, suicide ideation, homicidal ideation, and hallucinations, 17:32 ENT: Positive for ear pain, of the right ear, Exam: 17:32 Constitutional: This is a well developed, well nourished patient who is awake, alert, snw and in no acute distress. Head/Face: Normocephalic, atraumatic. Eyes: Pupils equal round and reactive to light, extra-ocular motions intact. Lids and lashes normal. Conjunctiva and sclera are non-icteric and not injected. Cornea within normal limits. Periorbital areas with no swelling, redness, or edema. Neck: Trachea midline, no thyromegaly or masses palpated, and no cervical lymphadenopathy. Supple, full range of motion without nuchal rigidity, or vertebral point tenderness. No Meningismus. Chest/axilla: Normal chest wall appearance and motion. Nontender with no deformity. No lesions are appreciated. Cardiovascular: Regular rate and rhythm with a normal S1 and S2. No gallops, murmurs, or rubs. Normal PMI, no JVD. No pulse deficits. Respiratory: Lungs have equal breath sounds bilaterally, clear to auscultation and percussion. No rales, rhonchi or wheezes noted. No increased work of breathing, no retractions or nasal flaring. Abdomen/GI: Soft, non-tender, with normal bowel sounds. No distension or tympany. No guarding or rebound. No evidence of tenderness throughout. Back: No spinal tenderness. No costovertebral tenderness. Full range of motion. Skin: Warm, dry with normal turgor. Normal color with no rashes, no lesions, and no evidence of cellulitis. MS/ Extremity: Pulses equal, no cyanosis. Neurovascular intact. Full, normal range of motion. Neuro: Awake and alert, GCS 15, oriented to person, place, time, and situation. Cranial nerves II-XII grossly intact. Motor strength 5/5 in all extremities. Sensory grossly intact. Cerebellar exam normal. Normal gait. Psych: Awake, alert, with orientation to person, place and time. Behavior, mood, and affect are within normal limits. 17:32 ENT: External ear(s): abscess, that is very small, right ear canal, Nose: is normal, Mouth: is normal, Vital Signs: 16:45 BP 132 / 96; Pulse 76; Resp 16; Temp 98.4; Pulse Ox 100% on R/A; iw 19:35 Weight 68.04 kg; mb9 MDM: 16:51 Patient medically screened. snw 17:33 Differential diagnosis: otitis media, otitis externa, acute otalgia, canal abscess. snw Data reviewed: vital signs, nurses notes. I considered the following discharge prescriptions or medication management in the emergency department Medications were administered in the Emergency Department. See APR. Administered Medications: 16:55 Drug: Lidocaine Mucous Membrane Gel 2 % 1 application Mucous Membrane once Route: iw Mucous Membrane; 19:43 Drug: Maxitrol Ophthalmic Drops 1 drops Ophthalmic in right eye once; ear canal Route: mb9 Ophthalmic; Site: both eyes; 19:43 Drug: HYDROcodone-acetaminophen PO 5 mg-325 mg 1 tabs PO once Route: PO; mb9 20:06 Follow up: Response: No adverse reaction mb9 19:43 Drug: Trimethoprim-Sulfamethoxazole PO (160 mg-800 mg (DS) 1 tablet PO once Route: PO; mb9 20:06 Follow up: Response: No adverse reaction mb9 Disposition Summary: 01/14/23 19:33 Discharge Ordered Notes: Location: Home snw Condition: Stable snw Diagnosis - Cutaneous abscess of other sites - right ear canal snw Followup: snw - With: Emergency Department - When: As needed - Reason: Worsening of condition Followup: snw - With: Rosalina Matthews MD - When: 2 - 3 days - Reason: Recheck today's complaints, Continuance of care Discharge Instructions: - Discharge Summary Sheet snw - Skin Abscess snw Forms: - Work release form snw - Medication Reconciliation Form snw - Thank You Letter snw - Antibiotic Education snw - Prescription Opioid Use snw - Patient Portal Instructions snw - Leadership Thank You Letter snw Prescriptions: - Diclofenac Sodium 75 mg Oral Tablet Sustained Release - take 1 tablet ORAL route 2 times per day; 30 tablet; Refills: 0, Product snw Selection Permitted - Bactrim DS 800-160 mg Oral Tablet - take 1 tablet ORAL route every 12 hours for 10 days; 20 tablet; Refills: 0, snw Product Selection Permitted Addendum: 01/16/2023 13:35 Co-signature as Attending Physician, Jamal Redd MD I reviewed the patient's care r n provided by the Advanced Practice Provider and agree with the diagnosis and treatment plan. Signatures: Tabatha Heart, M[facility] LEAD PSYCHOLOGIST-C MENTAL [facility] [facility] LEAD PSYCHOLOGIST-Csnw Michelle Escobedo, RN Jamal Banks MD MD rn Breneman, Mary Beth, RN RN mb9
[2023-01-14] MEDS ORDERED: NEO/POLY/DEX OPTH 5 ML BOT ONE (19:52)
[2023-01-14] MEDS ORDERED: HYDROCODONE/APAP 5/325 MG TAB ONE (19:52)
[2023-01-14] MEDS ORDERED: SMZ./TMP. 800/160 MG TABLET ONE (19:52)
[2023-01-14 20:16] VITALS: BP 132/96; TEMP 98.4; O2SAT 100
== END 2023-01-14 20:06 | disposition home or self-care (01) ==
LOC: ER 16:19
DX: H60.01 Abscess of right external ear (principal)
CPT/HCPCS: 99282